=== PATIENT | female | born 1950 | race Caucasian/White ===

== ENCOUNTER 2016-11-21 14:36 | Emergency (ER) | payer OTHER ==
[~2016-11-21 14:36] MED LIST: FEOSOL325 MG PO; SYNTHROID75 MCG PO
[2016-11-21 16:45] LABS: HEMOGLOBIN 11.9 gm/dl (12.3-15.3); RED BLOOD COUNT 3.68 M/UL (4.00-5.10); WHITE BLOOD COUNT 7.3 K/UL (4.5-11.0)
[2016-11-21 17:00] LABS: BUN/CREATININE RATIO 26 (0-10)
== END 2016-11-21 23:19 | disposition home or self-care (01) ==
LOC: ER1 14:36
PROVIDERS: Emergency Medicine
DX: N39.0 Urinary tract infection, site not specified (principal); I10 Essential (primary) hypertension; I69.354 Hemiplegia and hemiparesis following cerebral infarction affecting left non-dominant side
CPT/HCPCS: 36415; 71010; 80053; 81001; 83605; 83690; 84484; 85025; 87040; 87077; 87086; 87186; 96372; 99284; J0692; J0696; J7050